=== PATIENT | female | born 1955 | race Caucasian/White ===

== ENCOUNTER → 2020-09-24 | Outpatient (CLI) | payer MEDICARE, BC ==
[2015-06-18 04:36] VITALS: BP 151/74
[~2020-09-24] MED LIST: AMLO-186 PO; AMOX500T PO; ASPI-630 PO; CALC-98 PO; CHOL400T14 PO; ESOM40CA PO; FISH1CAP PO; FURO20TA3 PO; IBUP800T19 PO; LEVO50TA5 PO; MOME13HF2 IH; PRED5TAB PO; SIMV40TA18 PO; fiber choice; zicam
--- NOTE | 2020-09-24 16:58 | RAD ---
EXAM: Abdomen, single view. HISTORY: Renal stone. COMPARISON: None. FINDINGS: A frontal view of the abdomen is obtained. There is gas and stool within the colon and rect um. There is no evidence of bowel structure in. There are postoperative changes overlying the upper a bdomen. There is a suspected on a mammogram stone overlying the lower pole the right kidney. There ar e a few pelvic phleboliths. IMPRESSION: 1. Nonobstructive bowel gas pattern. 2. Suspected right nephrolithiasis. Electronically signed by: Clair Cedillo MD (09/24/2020 4:56 PM) [id number]
== END ==
LOC: DXRAD 16:36
PROVIDERS: ATTEND Urology
DX: N20.0 Calculus of kidney (principal)
CPT/HCPCS: 74018

== ENCOUNTER 2020-11-23 20:46 | Emergency (ER) | payer MEDICARE, BC ==
[~2020-11-23] VITALS: Ht 160 cm; Wt 84.5 kg
[2020-11-23] MEDS ORDERED: DEXAMETHASONE 4 MG TABLET PO ONE (21:00)
[2020-11-23] MEDS ORDERED: diphenhydrAMINE HCL 25 MG CAPSULE PO ONE (21:00)
--- NOTE | 2020-11-23 21:00 | PHYS DOC ---
Past History Past Medical History: Arthritis, Asthma, COPD, Hypertension Past Surgical History: Appendectomy, , Hysterectomy Smoking: Non-smoker Alcohol Use: None Drug Use: None Adult General Chief Complaint Chief Complaint: ALLERGIC REACTION HPI HPI Patient is a 64-year-old female who presents with a chief complaint of concern for allergic reaction. States she started taking a probiotic 2 days ago, and noticed that yesterday afternoon she had some itching behind her ears and on her hands and what appeared to be like hives that were randomly popping up. States she thinks that her upper lip is a little bit swollen. Denies headache, changes in vision, oropharyngeal swelling, pain or trouble swallowing, chest pain, shortness of breath, wheezing, abdominal pain, nausea, vomiting, diarrhea. States she took some Benadryl earlier in the day which did seem to help. Denies any recent traumas, travels, fevers illnesses or known ill contacts. States she otherwise feels well. Review of Systems Review of Systems Review of systems otherwise unremarkable except noted in HPI Allergies Allergies Allergies Coded Allergies Type Severity Reaction Last Updated Verified infliximab Allergy Severe Shortness of Air 05/14/13 Yes Physical Exam Physical Exam Constitutional: Well developed, well nourished, no acute distress, non-toxic appearance. [] HENT: Normocephalic, atraumatic, bilateral external ears normal, oropharynx moist, no oral exudates, no oropharyngeal swelling or nose normal. [] Eyes: PERRLA, EOMI, conjunctiva normal, no discharge. [] Neck: Normal range of motion, no tenderness, supple, no stridor, no lymphadenopathy. [] Cardiovascular:Heart rate regular rhythm, no murmur [] Lungs & Thorax: Bilateral breath sounds clear to auscultation [] Abdomen: soft, no tenderness, no masses, no pulsatile masses. [] Skin: Warm, dry, scattered, scant urticaria Extremities: No tenderness,ROM intact, no edema. [] Neurologic: Alert and oriented X 3, no focal deficits noted. [] Psychologic: Affect normal, judgement normal, mood normal. [] EKG EKG [] Radiology/Procedures Radiology/Procedures [] Heart Score C/O Chest Pain: No Risk Factors: Risk Factors: DM, Current or recent (<one month) smoker, HTN, HLP, family history of CAD, obesity. Risk Scores: Risk Factors: DM, Current or recent (<one month) smoker, HTN, HLP, family history of CAD, obesity. Course & Med Decision Making Course & Med Decision Making Patient is a 64-year-old female who presents with concern for allergic reaction Vital signs not concerning. Physical exam noted above. Patient greater than 24 hours out from initiation of symptoms and 3 days out from new probiotic she has been taking. Little concern for anaphylaxis. Given steroids and antihistamine. Discussed all findings with patient and family. Advised to follow-up Wednesday with primary care physician to update on ED visit. Advised to quit taking probiotic and discussed this with her doctor if indeed she wants to try to continue these. Gave strict return precautions to the ED. Patient and family grateful, verbalized understanding and agreed with plan of discharge. [] Dragon Disclaimer Dragon Disclaimer This electronic medical record was generated, in whole or in part, using a voice recognition dictation system. Departure Departure: Impression: Primary Impression: Allergic reaction Disposition: HOME / SELF CARE / HOMELESS Condition: GOOD Referrals: MARTA GLORIA (PCP) Patient Instructions: Allergies, Generic, Drug Allergy Additional Instructions: Thank you for coming into the emergency department tonight and allowing us to take care of you. Please read all the attached information very carefully to go back over things we discussed. Please cease taking the probiotic that she started until you discuss this with your primary care physician. Please call your primary care physician first thing Wednesday morning to update them on your ED visit and set up a follow-up visit. Please come back to the ED with any new or concerning symptoms as discussed. ANA PAULA AMOR MD Nov 23, 2020 21:00
[2020-11-23 21:24] VITALS: BP 129/78
== END 2020-11-23 21:32 | disposition home or self-care (01) ==
LOC: ER 20:46
DX: T78.40XA Allergy, unspecified, initial encounter (principal); J44.9 Chronic obstructive pulmonary disease, unspecified; I10 Essential (primary) hypertension; Z90.710 Acquired absence of both cervix and uterus; X58.XXXA Exposure to other specified factors, initial encounter
CPT/HCPCS: 99283; J8540; Q0163